=== PATIENT | male | born 1965 | race African-American/Black ===

== ENCOUNTER → 2017-07-23 15:14 | Outpatient (CLI) | payer MEDICAID, SELFPAY ==
--- NOTE | 2017-07-23 15:20 | RAD_ITS ---
STUDY: X-RAY - LUMBAR SPINE REASON FOR EXAM: Male, 51 years old. Chronic low back pain TECHNIQUE: Five view(s) of the lumbar spine were obtained. COMPARISON: Lumbar spine MRI dated March 17, 2014 FINDINGS: Normal lumbar lordosis. There is no significant scoliosis. There is normal alignment of the vertebrae. There are small osteophytes scattered in the lumbar spine. There is mild disc space narrowing at L5-S1. The soft tissues are unremarkable. RAD/L/S Spine Min 4 Views IMPRESSION: There are mild degenerative disc changes at L5-S1. Electronically Signed: Lina Fairbanks MD at 23:13 EST Tel Direct: [phone], Service support ,
== END ==
PROVIDERS: Visit Provider Nurse Practitioner Family
DX: M54.9 Dorsalgia, unspecified (principal)
CPT/HCPCS: 72110

== ENCOUNTER → 2018-02-04 07:04 | Outpatient (CLI) | payer MEDICAID, SELFPAY | PROVIDERS: Family Provider Internal Medicine; PCP Internal Medicine; Visit Provider Nurse Practitioner Family | DX: M46.96 Unspecified inflammatory spondylopathy, lumbar region (principal); M51.36 Other intervertebral disc degeneration, lumbar region; M54.16 Radiculopathy, lumbar region; M47.817 Spondylosis without myelopathy or radiculopathy, lumbosacral region | CPT/HCPCS: 72148 ==

== ENCOUNTER → 2018-06-17 09:34 | Outpatient (CLI) | payer MEDICAID, SELFPAY ==
[2017-02-21 22:17] VITALS: BMI 31.9
--- NOTE | 2018-06-17 09:36 | RAD_ITS ---
STUDY: X-RAY - CERVICAL SPINE REASON FOR EXAM: Male, 52 years old. NECK PAIN TECHNIQUE: 4 view(s) of the cervical spine were obtained. COMPARISON: MRI dated December 16, 2014 FINDINGS: Normal cervical lordosis. There is multi-level endplate spondylosis. There is multi-level degenerative disc disease with multilevel disc space narrowing. No demonstrated listhesis The soft tissue structures are unremarkable. RAD/Cerv Spine 4 or 5 Views IMPRESSION: Degenerative changes of the spine. Electronically Signed: Dayna Mays MD at 8:43 EST Tel , Service support ,
== END ==
PROVIDERS: Family Provider Internal Medicine; PCP Internal Medicine; Referring Provider Orthopaedic Surgery; Visit Provider Orthopaedic Surgery
DX: M54.2 Cervicalgia (principal)
CPT/HCPCS: 72050

== ENCOUNTER 2018-10-11 10:52 | Emergency (ER) | payer MEDICAID, SELFPAY ==
[2018-10-11 10:53] VITALS: BP 128/85; PULSE 62; RESP 17; TEMP 36.6; O2SAT 98; BMI 31.0
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
[2018-10-11] MEDS: Naproxen 500 MG Tablet PO (11:29)
[2018-10-11] MEDS: tiZANidine HCl 2 MG Tablet 4 MG PO (11:29)
== END 2018-10-11 11:38 | disposition home or self-care (01) ==
PROVIDERS: Emergency Provider Emergency Medicine; Family Provider Internal Medicine; PCP Internal Medicine
DX: M62.838 Other muscle spasm (principal); M25.511 Pain in right shoulder; M54.9 Dorsalgia, unspecified; M54.2 Cervicalgia; G89.29 Other chronic pain; I10 Essential (primary) hypertension; Z79.891 Long term (current) use of opiate analgesic; Z79.899 Other long term (current) drug therapy
CPT/HCPCS: 99283